=== PATIENT | male | born 1960 | race Caucasian/White ===

== ENCOUNTER 2024-02-27 04:48 | Outpatient (CLI) | payer OTHER, SELFPAY ==
[2024-02-27 07:49] LABS: Abs Immature Grans 0.07 10^3/uL (0.0-0.06); Absolute Basophil Count 0.03 10^3/uL (0.0-0.2); Absolute Eosinophil Count 0.21 10^3/uL (0.0-0.7); Absolute Lymphocyte Count 1.58 10^3/uL (1.2-3.4); Absolute Monocyte Count 0.62 10^3/uL (0.1-0.8); Absolute Neutrophil Count 2.32 10^3/uL (1.2-6.7); Basophils % 0.6 %; Eosinophils % 4.3 %; HGB 14.4 g/dL (13.5-17.5); Immature Grans % 1.4 %; Lymphocytes % 32.7 %; MCHC 33.5 % (32.0-36.0); MCV 81 fL (80-95); MPV 10.4 fL (8.0-11.0); Monocytes % 12.8 %; Neutrophils % 48.2 %; Platelet Count 107 10^3/uL (130-400); RBC 5.33 10^6/uL (4.36-5.78); RDW 13.6 % (11.8-14.1); RDW-SD 39.1 fL; WBC 4.83 10^3/uL (4.4-10.8)
[2024-02-27 08:32] LABS: ALT 95 U/L (16-63); AST 47 U/L (15-37); Albumin 4.3 g/dL (3.4-5.0); Alkaline Phosphatase 78 U/L (46-116); Anion Gap 9.5 mmol/L (3-11); BUN 33 mg/dL (7-18); Bilirubin, Total 0.6 mg/dL (0.2-1.0); CO2 25.5 mmol/L (21.0-32.0); CREATININE 1.3 mg/dL (0.70-1.30); Calcium 8.9 mg/dL (8.5-10.1); Calculated LDL 82 mg/dL (<100); Chloride 99 mmol/L (98-107); Cholesterol 139 mg/dL (<200); Glucose 161 mg/dL (74-106); HDL Cholesterol 38 mg/dL (40-60); Magnesium 1.8 mg/dL (1.8-2.4); Potassium 3.6 mmol/L (3.5-5.1); Sodium 134 mmol/L (136-145); Triglyceride 95 mg/dL (<150)
[2024-02-27 09:06] LABS: Vitamin D 25 Total 28.3 ng/mL (30-100)
[2024-02-27 18:02] LABS: IgE 12 IU/mL (<158)
[2024-02-27 18:46] LABS: Homocysteine 12.6 umol/L (5.0-13.9)
[2024-02-28 10:50] LABS: IgA 130 mg/dL (85-499); IgG 666 mg/dL (610-1616); IgM 67 mg/dL (35-242)
[2024-02-28 18:06] LABS: C-Peptide 2.4 ng/mL (1.1 - 4.4)
[2024-02-29 10:06] LABS: Myeloperoxidase Ab IgG <0.2 U
[2024-02-29 10:40] LABS: Insulin 4.3 uIU/mL (<29.0)
[2024-02-29 11:17] LABS: Lipoprotein (a) 7 nmol/L (<75)
[2024-03-01 23:31] LABS: Free Retinol (Vitamin A) 80.7 mcg/dL (32.5-78.0)
[2024-03-02 07:29] LABS: Pyridoxal 5-Phosphate (PLP), P 19 mcg/L (5-50)
[2024-03-06 18:23] LABS: Histamine Plasma 0.81 ng/mL (0-1.0)
== END 2024-02-27 04:49 | disposition home or self-care (01) ==
LOC: LBO 04:49
PROVIDERS: PCP Naturopath; Visit Provider Naturopath
DX: I10 Essential (primary) hypertension (principal); E11.42 Type 2 diabetes mellitus with diabetic polyneuropathy; D58.0 Hereditary spherocytosis; E55.9 Vitamin D deficiency, unspecified; J30.9 Allergic rhinitis, unspecified
CPT/HCPCS: 36415; 80053; 80061; 82306; 82784; 83090; 83695; 82785; 83088; 83516; 83525; 83735; 84207; 84590; 84681; 85025